=== PATIENT | male | born 1950 | race Caucasian/White ===

== ENCOUNTER 2024-04-28 10:52 | Emergency (ER) | payer BC ==
[~2024-04-28] VITALS: Ht 177.8 cm; Wt 91.9 kg
[2024-04-28 10:53] VITALS: BP 148/88; TEMP 97.4; O2SAT 94
[2024-04-28] MEDS ORDERED: BIMA01SOL (12:06)
[2024-04-28] MEDS ORDERED: SIMV40TA20 (12:06)
[2024-04-28] MEDS ORDERED: ZYRTTAB8 PO (12:07)
[2024-04-28] MEDS: KETOROLAC 60MG 2ML VIAL IM ONE (12:10)
[2024-04-28] MEDS: LIDOCAINE 4% CREAM 5GM (LMX4) TOP ONE (12:10)
[2024-04-28] MEDS ORDERED: METH-1164 PO (13:02)
[2024-04-28] MEDS ORDERED: DICL20GE TP (13:02)
== END 2024-04-28 13:13 | disposition home or self-care (01) ==
LOC: M ED 10:52
DX: M48.02 Spinal stenosis, cervical region (principal); M50.323 Other cervical disc degeneration at C6-C7 level; M25.78 Osteophyte, vertebrae; E78.5 Hyperlipidemia, unspecified; Z79.899 Other long term (current) drug therapy; Z79.02 Long term (current) use of antithrombotics/antiplatelets; Z79.52 Long term (current) use of systemic steroids
CPT/HCPCS: 72125; 96372; 99282; J1885